=== PATIENT | male | born 1995 | race Caucasian/White ===

== ENCOUNTER 2020-03-20 10:14 | Emergency (ER) | payer OTHER ==
[~2020-03-20] VITALS: Ht 177.8 cm; Wt 90.8 kg
[2020-03-20 11:23] LABS: BASO % 0.4 % (0.0-1.0); EOS # 0.1 10^3/uL (0.0-0.5); EOS % 0.5 % (0.0-3.0); LYMPH # 1.9 10^3/uL (1.5-5.0); LYMPH % 18.4 % (24.0-44.0); MEAN CORPUSCULAR HEMOGLOBIN 31.8 pg (27.0-33.0); MEAN CORPUSCULAR HGB CONC 34.9 g/dl (32.0-36.5); MEAN CORPUSCULAR VOLUME 91.1 fl (80.0-96.0); MONO # 0.7 10^3/uL (0.0-0.8); NEUTROPHILS # 7.6 10^3/uL (1.5-8.5); PLATELET COUNT, AUTOMATED 207 10^3/uL (150-450); RED BLOOD COUNT 4.72 10^6/uL (4.30-6.10); WHITE BLOOD COUNT 10.4 10^3/uL (4.0-10.0)
--- NOTE | 2020-03-20 11:41 | REPVR ---
PROCEDURE INFORMATION: Exam: US Scrotum Exam date and time: 03/20/2020 11:11 AM Age: 24 years old Clinical indication: Scrotum pain; Additional info: HX of left testicle pain 2/3 weeks ago for 2 days, states has migrated up to lt abd on today's visit TECHNIQUE: Imaging protocol: Real-time ultrasound of the scrotum and contents with color Doppler and image documentation. COMPARISON: No relevant prior studies available. FINDINGS: Right testicle: Right testicle measures 4.8 x 2.6 x 3.2 cm. Positive blood flow. No mass. Left testicle: Left testicle measures 5.0 x 2.1 x 3.0 cm. Positive blood flow. No mass. Epididymides: Incidental right epididymal cysts, measuring up to 4 mm. Incidental tiny left epididymal cysts, measuring up to 2 mm. Scrotum: Normal. IMPRESSION: No acute scrotal abnormality. Electronically signed by: Candi Rayo On 03/20/2020 11:41:00 AM
[2020-03-20 11:56] LABS: MONO SCRN NEGATIVE (NEGATIVE)
[2020-03-20 11:58] LABS: ALBUMIN 4.1 GM/DL (3.2-5.2); BILIRUBIN,DIRECT 0.2 MG/DL (0.0-0.2); BILIRUBIN,TOTAL 0.9 MG/DL (0.2-1.0)
[2020-03-20] MEDS ORDERED: ISOVUE-370 76% 100ML VIAL As Ordered ONE (12:01)
--- NOTE | 2020-03-20 12:56 | REPVR ---
PROCEDURE INFORMATION: Exam: CT Abdomen And Pelvis With Contrast Exam date and time: 03/20/2020 10:45 AM Age: 24 years old Clinical indication: Abdominal pain; Localized; Left upper quadrant (luq); Additional info: Luq pain TECHNIQUE: Imaging protocol: Computed tomography of the abdomen and pelvis with intravenous contrast. Radiation optimization: All CT scans at this facility use at least one of these dose optimization techniques: automated exposure control; mA and/or kV adjustment per patient size (includes targeted exams where dose is matched to clinical indication); or iterative reconstruction. Contrast material: ISOVUE 370; Contrast volume: 100 ml; Contrast route: INTRAVENOUS (IV); COMPARISON: No relevant prior studies available. FINDINGS: Liver: Normal. No mass. Gallbladder and bile ducts: Normal. No calcified stones. No ductal dilation. Pancreas: Normal. No ductal dilation. Spleen: Normal. No splenomegaly. Adrenals: Normal. No mass. Kidneys and ureters: Normal. No hydronephrosis. Stomach and bowel: Unremarkable. No obstruction. No mucosal thickening. Appendix: No evidence of appendicitis. Intraperitoneal space: Unremarkable. No free air. No significant fluid collection. Vasculature: Unremarkable. No abdominal aortic aneurysm. Lymph nodes: Unremarkable. No enlarged lymph nodes. Urinary bladder: Unremarkable as visualized. Reproductive: Unremarkable as visualized. Bones/joints: Chronic bilateral L5 pars defects. Grade 1 anterolisthesis of L5 on S1. Degenerative endplate changes and disc space narrowing at L5-S1. Soft tissues: Unremarkable. IMPRESSION: No acute abnormality is identified within the abdomen/pelvis. Electronically signed by: Candi Rayo On 03/20/2020 12:56:10 PM
[2020-03-20 13:30] VITALS: BP 122/65
[2020-03-20 15:34] LABS: CHLAMYDIA DNA AMPLIFICATION NEGATIVE (NEGATIVE); GC DNA AMPLIFICATION NEGATIVE (NEGATIVE)
== END 2020-03-20 14:05 | disposition home or self-care (01) ==
LOC: M ED 10:14
DX: S29.011A Strain of muscle and tendon of front wall of thorax, initial encounter (principal); R10.9 Unspecified abdominal pain; Y93.9 Activity, unspecified; Y92.9 Unspecified place or not applicable; Y99.9 Unspecified external cause status
CPT/HCPCS: 36415; 74177; 76870; 80047; 80076; 81001; 83690; 85025; 86308; 87040; 87491; 87591; 93041; 93976; 99284; Q9967

== ENCOUNTER → 2021-02-12 | Outpatient (CLI) | payer OTHER ==
--- NOTE | 2021-02-13 11:47 | REP ---
INDICATION: PAIN IN RIGHT FOOT COMPARISON: None. TECHNIQUE: AP, lateral, bilateral oblique views right foot. FINDINGS: The osseous structures and joint spaces are intact and normal. There is no evidence for acute fracture or dislocation. Surrounding soft tissues are unremarkable. No subcutaneous emphysema or radiodense foreign body. IMPRESSION: Normal age-appropriate right foot radiographs. No acute fracture or dislocation. <Electronically signed by Donovan López > 02/13/21 [id number]
== END ==
LOC: M PLAIMG 14:16
PROVIDERS: ATTEND Physician Assistant
DX: M79.671 Pain in right foot (principal)

== ENCOUNTER → 2024-06-10 | Outpatient (REF) | payer OTHER, BC | LOC: M LAB REF 16:26 | PROVIDERS: ATTEND Physician Assistant Medical | DX: B34.9 Viral infection, unspecified (principal) ==

== ENCOUNTER → 2025-02-18 | Outpatient (CLI) | payer BC | LOC: M RAD 12:36 | PROVIDERS: ATTEND Nurse Practitioner Family | DX: N50.811 Right testicular pain (principal) ==